=== PATIENT | male | born 1980 | race Caucasian/White ===

== ENCOUNTER → 2021-03-19 | Outpatient (CLI) | payer OTHER ==
--- NOTE | 2021-03-19 17:50 | KCIC ---
EXAM: CT lumbar spine without contrast INDICATION: Lower back pain for 3 to 4 months, bilateral lower extremity numbness right greater than left COMPARISON: None TECHNIQUE: Axial CT imaging through lumbar spine without intravenous contrast. Sagittal and coronal r eformats were obtained. One or more of the following individualized dose reduction techniques were utilized for this examinat ion: 1. Automated exposure control 2. Adjustment of the mA and/or kV according to patient size 3. Use of iterative reconstruction technique. FINDINGS: There 5 nonrib-bearing lumbar vertebral bodies. No acute fracture. Alignment is normal. Disc spaces a re maintained. There are small broad-based disc bulges and mild facet arthrosis at L4-L5 and L5-S1 wi th possible mild foraminal narrowing at these levels. There may be mild canal narrowing at L4-L5. Thi s would be better assessed by MRI. Paraspinous musculature is normal. Visualized portion of the retro peritoneum is unremarkable. IMPRESSION: No acute osseous abnormality. Mild degenerative disc disease and facet arthrosis at L4-L5 and L5-S1. Electronically signed by: Ivett Moore MD (03/19/2021 5:48 PM) [id number]
== END ==
LOC: KCIC CT 09:23
PROVIDERS: ATTEND Family Medicine
DX: M47.27 Other spondylosis with radiculopathy, lumbosacral region (principal); M51.17 Intervertebral disc disorders with radiculopathy, lumbosacral region
CPT/HCPCS: 72131